=== PATIENT | female | born 1935 | race Caucasian/White ===

== ENCOUNTER 2021-01-23 11:24 | Emergency (ER) | payer BC, OTHER ==
[~2021-01-23] VITALS: Ht 162.6 cm; Wt 56.7 kg
[~2021-01-23 11:24] MED LIST: ASPI81TA31 PO; ATEN25TA PO
[2021-01-23] MEDS ORDERED: PRAV10TA40 PO (11:40)
[2021-01-23] MEDS ORDERED: HYDROCODONE/APAP 5-325MG TABLET PO ONE (12:15)
[2021-01-23] MEDS ORDERED: HYDROCODONE/APAP 5-325MG TABLET ONE (12:27)
[2021-01-23] MEDS ORDERED: HYDR-3972 PO (13:15)
--- NOTE | 2021-01-23 13:35 | NUR ---
PT WAS EVALUATED BY DR ESPINO. PT WAS D/C TO HOME. D/C INSTRUCTIONS GIVEN TO THE PT BY DR ESPINO.
[2021-01-23 13:37] VITALS: BP 142/68
== END 2021-01-23 13:38 | disposition home or self-care (01) ==
LOC: ER 11:24
DX: S63.92XA Sprain of unspecified part of left wrist and hand, initial encounter (principal); X50.0XXA Overexertion from strenuous movement or load, initial encounter; Y93.89 Activity, other specified; Y92.89 Other specified places as the place of occurrence of the external cause; I10 Essential (primary) hypertension; Z87.828 Personal history of other (healed) physical injury and trauma
CPT/HCPCS: 73130; A4663